=== PATIENT | female | born 1965 | race Caucasian/White ===

== ENCOUNTER 2019-04-30 13:38 | Emergency (ER) | payer MEDICAID ==
[2019-04-30] MEDS ORDERED: traMADol TAB* 50 MG PO ONE (14:50)
--- NOTE | 2019-04-30 14:51 | ED ---
Back Pain - HPI Summary HPI Summary: Pt. is a 54 y.o female who presents to the ER for low right sided back pain x 4 days. Pt. states she slipped on ice going down 4 steps and fell landing striking her left low back on steps. Pt. states she then fell forward and struck her left eye. Pt. denies LOC. Pt. notes minimal h/a. Denies past hx. Is not anticoagulated. Pt. states she has chronic sciatica in right leg without change. Pt. denies leg numbness, tingling, weakness, loss of bowel or bladder function, hematuria, cp, sob. Sxs are mild in severity. Movement makes sxs worse. Nothing makes sxs better. Pt. notes she recently moved to the area from [place] and does not have a PCP. - History of Current Complaint Chief Complaint: EDBackInjuryPain Stated Complaint: INJURIES FROM FALL PER EMS Time Seen by Provider: 04/30/19 14:17 Hx Obtained From: Patient Pain Intensity: 10 - Allergies/Home Medications Allergies/Adverse Reactions: Allergies Allergy/AdvReac Type Severity Reaction Status Date / Time cefazolin [From Ancef] Allergy Anaphylatic Verified 04/30/19 13:47 Shock cephalexin [From Keflex] Allergy Hives Verified 04/30/19 13:47 Home Medications: Home Medications lisinopriL [Lisinopril] 40 mg PO DAILY 04/30/19 [History Confirmed 04/30/19] PMH/Surg Hx/FS Hx/Imm Hx Previously Healthy: Yes Infectious Disease History: No Infectious Disease History: Denies: Traveled Outside the [place] in Last 30 Days - Family History Known Family History: Positive: Non-Contributory - Social History Occupation: Unemployed Lives: With Family Review of Systems Constitutional: Negative Eyes: Negative ENT: Negative Negative: Epistaxis Cardiovascular: Negative Negative: Chest Pain Respiratory: Negative Negative: Shortness Of Breath Gastrointestinal: Negative Genitourinary: Negative Negative: flank pain, hematuria Positive: Other - Left low back pain Positive: Bruising Neurological: Negative Negative: Weakness, Paresthesia, Numbness, Syncope All Other Systems Reviewed And Are Negative: Yes Physical Exam Triage Information Reviewed: Yes Vital Signs On Initial Exam: Initial Vitals Temp Pulse Resp BP Pulse Ox 97.9 F 87 17 132/82 97 04/30/19 13:44 04/30/19 13:44 04/30/19 13:44 12/05/19 13:44 04/30/19 13:44 Vital Signs Reviewed: Yes Appearance: Positive: Well-Appearing - Pt. lying on bed c/o back pain. Skin: Positive: Warm, Dry Head/Face: Positive: Normal Head/Face Inspection Eyes: Positive: Normal, EOMI, ROSA, Conjunctiva Clear, Other: - Healing ecchymosis noted around left eye. Neck: Positive: Supple Respiratory/Lung Sounds: Positive: Clear to Auscultation, Breath Sounds Present Cardiovascular: Positive: Normal, RRR Abdomen Description: Positive: Nontender, Soft Musculoskeletal: Positive: Other - Midline mid lumbar tenderness. Ecchymosis noted over left low back. No CVA tenderness. 5/5 strength in bilateral LEs with flexion and dorsiflexion. Neurological: Positive: Normal, CN Intact II-III Psychiatric: Positive: Affect/Mood Appropriate Procedures - Sedation Patient Received Moderate/Deep Sedation with Procedure: No Diagnostics - Vital Signs Vital Signs Temp Pulse Resp BP Pulse Ox 04/30/19 13:44 97.9 F 87 17 132/82 97 - Laboratory Lab Statement: Any lab studies that have been ordered have been reviewed, and results considered in the medical decision making process. Back Pain Course/Dx - Course Course Of Treatment: Pt. presenting with low back pain after mechanical fall that occurred 4 days ago. No neuro deficits on exam. Pt. given a dose of tramadol and toradol for pain. Given midline tenderness and fall xray obtained. Xray per radiology: IMPRESSION: 1. FRACTURE OF THE LEFT L3 TRANSVERSE PROCESS. 2. RELATIVELY PROMINENT ATHEROSCLEROTIC CHANGES IN THE ABDOMINAL AORTA FOR THE PATIENT'S. AGE. Pt. without neuro deficts to suggest further injury. Post void residual is 0cc. Case discussed with Dr. Garvin who recommends dc home with neurosx f.u. WEIGHT [employer]ER reviewed and no red flags noted. Short rx for pain medication rx. Advised pt. to f.u with [facility] and neurosx as soon as possible. Given strict return precautions. Pt. understands and agrees with plan. - Diagnoses Differential Diagnosis/HQI/PQRI: Positive: Fracture, Herniated Disc, Strain, Sprain Provider Diagnoses: Lumbar transverse process fracture Discharge ED - Sign-Out/Discharge Documenting (check all that apply): Patient Departure - Discharge Plan Condition: Good Disposition: HOME Prescriptions: HYDROcodone/ACETAMIN 5-325 MG* [Rico 5-325 TAB*] 1 tab PO Q6H PRN #20 tab MDD 4 PRN Reason: Pain - Moderate Patient Education Materials: Acute Low Back Pain (ED) Referrals: [facility] [Outside] Delmi Mak MD [Medical Doctor] - Additional Instructions: Schedule an appointment with the [facility] and neurosurgery as soon as possible Pain medication as directed Ice intermittently Return to ER for increased pain, loss of bowel or bladder control, leg weakness or if concerned - Billing Disposition and Condition Condition: GOOD Disposition: Home - Attestation Statements Provider Attestation: pt seen by midlevel provider independently, based on their assessment, it was not necessary to present the case to me but I was available for consultation. I did not form a physician-patient relationship with the patient. The chart however, has been reviewed. am signing this note strictly in an administrative capacity.
[2019-04-30] MEDS: Ketorolac *IM* INJ* 60 MG/2 ML VIAL IM ONE ×2 (15:13→15:14)
[2019-04-30 16:53] VITALS: BP 158/94
== END 2019-04-30 16:50 | disposition home or self-care (01) ==
LOC: ED 13:38
DX: S32.039A Unspecified fracture of third lumbar vertebra, initial encounter for closed fracture (principal); W00.1XXA Fall from stairs and steps due to ice and snow, initial encounter; Y92.9 Unspecified place or not applicable; Z79.899 Other long term (current) drug therapy; Z88.1 Allergy status to other antibiotic agents
CPT/HCPCS: 72110; 99282; A9270-GY; J1885